=== PATIENT | male | born 1950 | race Caucasian/White ===

== ENCOUNTER → 2020-11-01 | Outpatient (CLI) | payer OTHER ==
[~2020-11-01] MED LIST: NOHOMEMEDICATIONS
== END ==
LOC: CAT 08:32
PROVIDERS: ATTEND Family Medicine
DX: Z13.6 Encounter for screening for cardiovascular disorders (principal)

== ENCOUNTER → 2020-11-10 | Outpatient (CLI) | payer OTHER, MEDICARE | LOC: SJCVC 12:56 | PROVIDERS: ATTEND Internal Medicine Cardiovascular Disease | DX: R00.1 Bradycardia, unspecified (principal); R93.1 Abnormal findings on diagnostic imaging of heart and coronary circulation; R07.9 Chest pain, unspecified; E78.00 Pure hypercholesterolemia, unspecified; I65.29 Occlusion and stenosis of unspecified carotid artery; I10 Essential (primary) hypertension; E11.9 Type 2 diabetes mellitus without complications; N40.0 Benign prostatic hyperplasia without lower urinary tract symptoms; E78.5 Hyperlipidemia, unspecified; Z88.8 Allergy status to other drugs, medicaments and biological substances; Z98.890 Other specified postprocedural states; Z79.82 Long term (current) use of aspirin; Z82.49 Family history of ischemic heart disease and other diseases of the circulatory system ==

== ENCOUNTER → 2020-12-11 | Outpatient (CLI) | payer OTHER, MEDICARE | LOC: SJCVCIMAG 07:46 | PROVIDERS: ATTEND Internal Medicine Cardiovascular Disease | DX: I08.1 Rheumatic disorders of both mitral and tricuspid valves (principal); I49.5 Sick sinus syndrome; I65.23 Occlusion and stenosis of bilateral carotid arteries; I25.812 Atherosclerosis of bypass graft of coronary artery of transplanted heart without angina pectoris; I10 Essential (primary) hypertension; I65.29 Occlusion and stenosis of unspecified carotid artery; E78.00 Pure hypercholesterolemia, unspecified; N40.0 Benign prostatic hyperplasia without lower urinary tract symptoms; E11.9 Type 2 diabetes mellitus without complications; E78.5 Hyperlipidemia, unspecified; R93.1 Abnormal findings on diagnostic imaging of heart and coronary circulation; F41.9 Anxiety disorder, unspecified; Z82.49 Family history of ischemic heart disease and other diseases of the circulatory system; Z79.82 Long term (current) use of aspirin; Z88.5 Allergy status to narcotic agent ==